=== PATIENT | female | born 1955 | race Hispanic/Latino ===

== ENCOUNTER → 2018-09-27 | Outpatient (CLI) | payer BC | END | disposition home or self-care (01) | LOC: RAH 12:50 | PROVIDERS: ATTEND Family Medicine | DX: K57.30 Diverticulosis of large intestine without perforation or abscess without bleeding (principal); N20.2 Calculus of kidney with calculus of ureter; N13.30 Unspecified hydronephrosis; N32.89 Other specified disorders of bladder; M47.895 Other spondylosis, thoracolumbar region | CPT/HCPCS: 74176 ==